=== PATIENT | female | born 1995 | race Caucasian/White ===

== ENCOUNTER 2017-02-01 09:53 | Outpatient (CLI) | payer OTHER ==
[~2017-02-01] VITALS: Ht 160 cm; Wt 53.1 kg
[~2017-02-01 09:53] MED LIST: HYDR-757 PO; NAPR500T PO; PANT40TA3 PO; SUCR1TAB36 PO
[2017-02-02] MEDS ORDERED: PANT40TA2 PO (09:52)
== END 2017-02-01 14:04 ==
LOC: PREOP 09:53
PROVIDERS: ATTEND Surgery
DX: Z01.818 Encounter for other preprocedural examination (principal); K92.1 Melena

== ENCOUNTER 2017-02-02 07:34 | Day surgery (SDC) | payer BC ==
[~2017-02-02] VITALS: Ht 160 cm; Wt 53.1 kg
--- OUTSIDE RECORDS SUMMARY | 2017-02-02 07:38 | XMS REPORT | Referral Summary ---
Author Author [facility] Organization [facility] Address Unknown Phone Unavailable Care Team Providers Care Retinal Surgeon Name Role Phone Nayana Hodges PCP Encounter VC Date(s): 12/05/14 - 12/05/14 [facility] [address] [place] [address] [place] Discharge Diagnosis: Well child check Discharge Disposition: 01-Home or Self Care Attending Physician: Nayana Hodges MD Vital Signs No data available for this section Problem List Condition Effective Dates Status Health Status Informant Allergic Active rhinitis(Confirmed) Well child Active check(Confirmed) Tourettes Active syndrome(Confirmed) Allergies, Adverse Reactions, Alerts No Known Allergies Medications CeleBREX 200 mg oral capsule 1 caps, Oral, Daily, # 10 caps, 0 Refill(s), samples given to patient (Rx) Start Date: 12/11/13 Stop Date: 12/21/13 Status: Ordered Results No data available for this section Immunizations Vaccine Date Refusal Reason meningococcal conjugate vaccine 12/03/13 Procedures Procedure Date Related Diagnosis Body Site S/P foot surgery 2011 S/P foot surgery, right 2010 Social History Social History Type Response Smoking Status Never smoker Assessment and Plan Extracted from: Title: [facility] Author: Nayana Hodges MD Date: 12/05/14 Assessment/Plan Well child check Anticipatory Guidance General: adequate amount of sleep, alcohol/drugs/tobacco, allow privacy, early childhood/adult supervision, dating, dental care, encourage decision making/ independence, hobbies/sports/activities encouragement, limit TV/video games/ computer, school performance and sex education/safe sex/STDs/ control. Diet : balanced diet, eat meals as a family, encourage healthy food, low fat or nonfat milk and maintain healthy weight. Safety : bike/skateboard safety, body piercing/tattooing risk, drowning, guns (unload/lock-up), helmet use, home alone, limit sun exposure: use of sunscreen, seat belts and sport safety. Ordered: Periodic Comp Preventive Med 18 to 39 years Est 62020
--- OUTSIDE RECORDS SUMMARY | 2017-02-02 07:38 | XMS REPORT ---
Author Josef Doan Organization [employer] Address Unknown Phone Unavailable Care Team Providers Care Offset Pressman Name Role Phone Josef Ellis CP Unavailable Allergies No Known Allergies Problems No Known Problems Medications Medication Code System Code Instructions Start Date End Date Status Dosage Medrol (Rogelio) [facility] [id number] 4 mg Orally as directed Jun 12, 2014 as directed Results No Known Results Summary Purpose [employer] Submission
--- OUTSIDE RECORDS SUMMARY | 2017-02-02 07:38 | XMS REPORT | Referral Summary ---
Author Author [facility] Organization [facility] Address Unknown Phone Unavailable Care Team Providers Care Bottle Hop Name Role Phone Nayana Hodges PCP Encounter VC Date(s): 12/05/14 - 12/05/14 [facility] [address] [place] [address] [facility] Discharge Disposition: 01-Home or Self Care Attending Physician: Nayana Hodgse MD Vital Signs Most recent to 1 oldest [Reference Range]: Temperature Oral 36.8 degC [35.8-37.3 degC] (12/05/14 10:06 AM) Peripheral Pulse 88 bpm Rate [60-100 bpm] (12/05/14 10:06 AM) Respiratory Rate 16 br/min [14-20 br/min] (12/05/14 10:06 AM) Blood Pressure 90/60 mmHg [90-140/60-90 mmHg] (12/05/14 10:06 AM) Problem List Condition Effective Dates Status Health [...] foot surgery 2011 S/P foot surgery, right 2011 Social History Social History Type Response Smoking Status Never smoker Assessment and Plan No data available for this section
[2017-02-02] MEDS ORDERED: LACTATED RINGERS 1,000 ML IV STA (07:45)
[2017-02-02] MEDS ORDERED: HURRICAINE EXT TUBE (BENZOCAINE) XX PRN (07:45)
[2017-02-02 08:01] VITALS: BP 108/79
[2017-02-02] MEDS ORDERED: LIDOCAINE PF 2% 5 ML (XYLOCAINE) VIAL ONE (08:16)
[2017-02-02] MEDS ORDERED: PROPOFOL INJECTION 50 ML IV ONE (08:16)
--- NOTE | 2017-02-02 08:37 | Progress Note-Pre Operative ---
Pre-Operative Progress Note H&P Reviewed The H&P was reviewed, patient examined and no changes noted. Date Seen by Provider: Feb 02, 2017 Time Seen by Provider: 08:36 Date H&P Reviewed: Feb 02, 2017 Time H&P Reviewed: 08:37 Pre-Operative Diagnosis: epigastric abdominal pain, bright red blood per rectum HAMMAD BATES DO Feb 02, 2017 08:37
[2017-02-02] MEDS ORDERED: HURRICAINE EXT TUBE (BENZOCAINE) ONE (09:18)
[2017-02-02 09:35] VITALS: BP 115/72
[2017-02-02] MEDS ORDERED: PANT40TA2 PO (09:52)
[2017-02-02 09:55] VITALS: BP 116/72
--- NOTE | 2017-02-02 09:55 | Discharge Inst-Simple/Standard ---
Discharge Inst-Standard Discharge Medications New, Converted or Re-Newed RX: Transmitted to Pharmacy Patient Instructions/Follow Up Plan of Care/Instructions/FU: 2 weeks Louisa Activity as Tolerated: Yes Discharge Diet: Regular Diet HAMMAD BATES DO Feb 02, 2017 09:54
--- NOTE | 2017-02-02 09:56 | Progress Note-Post Operative ---
Post-Operative Progess Note Surgeon (s)/Scroll Saw Operator (s) Surgeon HAMMAD BATES DO Scroll Saw Operator: na Pre-Operative Diagnosis epigastric abdominal pain, bright red blood per rectum Post-Operative Diagnosis small hiatal hernia Procedure & Operative Findings Date of Procedure 02/02/17 Procedure Performed/Findings egd c biopsy, colonoscopy Anesthesia Type per medical registrar Estimated Blood Loss Estimated blood loss (mL): none Specimens/Packing Specimens Removed antrum HAMMAD BATES DO Feb 02, 2017 09:56
[2017-02-02 10:03] VITALS: BP 116/72
--- NOTE | 2017-02-02 19:25 | OPERATIVE REPORT ---
DATE OF SERVICE: 02/02/2017 PREOPERATIVE DIAGNOSIS: Epigastric abdominal pain, bright blood per rectum. POSTOPERATIVE DIAGNOSIS: Small hiatal hernia, normal colon. PROCEDURE: Esophagogastroduodenoscopy with biopsy and colonoscopy. ANESTHESIA: Per KILN REMOVER. ESTIMATED BLOOD LOSS: None. SPECIMENS: Antrum. INDICATIONS: The patient is a 22-year-old female who has been having continuous epigastric abdominal pain. She has also had episodes of bright red blood per rectum. She understands risks and benefits of procedures and wished to proceed with procedure. Consent was signed and on the chart. DESCRIPTION OF PROCEDURE: The patient was taken to the endoscopy suite, placed in left lateral recumbent position. Timeout was performed. Scope was inserted in mouth, down into esophagus, stomach and into the duodenum. The duodenum had no polyps, mass or ulcerations. The scope was slowly retracted back into the stomach, which was further insufflated. There are no polyps, masses or ulcerations within the stomach. Biopsy of the antrum was obtained. The scope was retroflexed and there is a small hiatal hernia. There were no other polyps, masses or ulcerations. Scope was returned to its normal position, slowly withdrawn back into the distal esophagus which had normal appearance. There are no polyps, masses or ulcerations or erythematous changes. Scope was slowly retracted back until completely removed. Digital rectal exam was performed and there were no palpable polyps, masses or ulcerations. No visible abnormalities as well. Scope was inserted in the rectum and advanced all the way to the cecum with minimal difficulty. Prep was adequate. The terminal ileum was intubated, which the ileum had normal appearance. The scope was then retracted back into the colon and there were no polyps, masses or ulcerations within the cecum, ascending, transverse, descending and sigmoid colon. In the rectum the scope was also retroflexed noting no other pathology. Scope was returned to its normal position, slowly withdrawn until completely removed, noting no other pathology. The patient tolerated procedure well without any complications. She was taken to recovery room in stable condition of the patient. RECOMMENDATIONS: The patient will restart her Protonix 40 mg daily. She will follow up in the office in approximately 2 weeks. We will await biopsy results. If no improvement would also consider further workup of repeating the gallbladder workup and if that is negative, would consider getting a CT scan of the abdomen and pelvis or further by have her follow backup with gastroenterology. Job ID: [id number] DocumentID: [id number] Dictated Date: 02/02/2017 10:59:09 Business Solutions Architect Date: 02/02/2017 19:24:49 Dictated By: HAMMAD BATES DO
== END 2017-02-02 10:03 | disposition home or self-care (01) ==
LOC: SDC 07:34
PROVIDERS: ATTEND Surgery
DX: R10.13 Epigastric pain; K44.9 Diaphragmatic hernia without obstruction or gangrene; K62.5 Hemorrhage of anus and rectum
CPT/HCPCS: 84703

== ENCOUNTER → 2017-04-11 | Outpatient (CLI) | payer BC ==
[~2017-04-11] MED LIST changes: +CATHETER FLUSH 10 ML SYR IV PRN; +NAPR-1071 PO; -NAPR500T PO; +PANT40TA2 PO
--- NOTE | 2017-04-11 14:34 | Diagnostic Imaging Report ---
EXAMINATION: HIDA with EF measurements Indication: Abdominal pain TECHNIQUE: After the intravenous administration of 5.2 mCi of Tc 99m Choletec, imaging over the abdomen was obtained. This was followed by administration of Ensure orally to stimulate intrinsic CCK secretion, followed by continued imaging with ejection fraction measured. FINDINGS: There is homogeneous uptake in the liver with prompt bile duct and gallbladder filling seen. Bowel activity is seen at 65 minutes. Based on further imaging and gallbladder area of interest activity measurements after the administration of Ensure, the gallbladder ejection fraction is estimated at 59%. IMPRESSION: 1. Normal hepatobiliary uptake and Gallbladder filling. 2. Normal gallbladder ejection fraction. Dictated by: Dictated on workstation # [id number]
== END ==
LOC: CARD 09:38
PROVIDERS: ATTEND Surgery
DX: R10.13 Epigastric pain (principal)
CPT/HCPCS: 78227

== ENCOUNTER 2021-02-19 18:47 | Emergency (ER) | payer OTHER ==
[~2021-02-19] VITALS: Ht 162.5 cm; Wt 53.3 kg
[~2021-02-19 18:47] MED LIST changes: -CATHETER FLUSH 10 ML SYR IV PRN; +HYDR-4226 PO; -HYDR-757 PO; +NITR-65 PO; +OMEP40CA6 PO; +ONDA8TAB13 PO; -PANT40TA3 PO; +PANT40TA52 PO
--- NOTE | 2021-02-19 19:26 | ED GI ---
General Chief Complaint: OB < 20 WEEKS Stated Complaint: N/V- 7 WKS PREG Nursing Triage Note: Pt ambulatory into ER with complaint of Nausea and Vomiting x4 days. PT states that she is about 7 weeks . Pt states that earlier this year she had a miscarriage, but during that she was diagnosed with hyperemsis very early. PT states that she has vomited at least 7 times each of the last 4 days. Today she has vomited 13 times. Pt states that she is allergic to promethazine. Pt denies other complaints. Source of Information: Patient Exam Limitations: No Limitations History of Present Illness Date Seen by Provider: Feb 19, 2021 Time Seen by Provider: 19:25 Initial Comments To ER by private vehicle with reports of uncontrolled nausea and vomiting. She denies any abdominal pain or vaginal bleeding. She is 7 weeks gestation. She had some troubles with vomiting during previous . She is from [facility] here for a wedding. Timing/Duration: 3-4 Days Severity/Quality: Moderate Location: Generalized Abdomen Radiation: No Radiation Activities at Onset: None Associated Symptoms: Nausea/Vomiting Allergies and Home Medications Allergies Coded Allergies: No Known Drug Allergies (Verified , 02/01/17) Patient Home Medication List Home Medication List Reviewed: Yes Nitrofurantoin Monohyd/M-Cryst (Macrobid 100 mg Capsule) 100 Mg Capsule, 1 TAB PO BID Prescribed by: MARIBEL COLON on 08/21/171836 Omeprazole (Omeprazole) 40 Mg Capsule.dr, 40 MG PO DAILY Prescribed by: MARIBEL COLON on 08/21/171836 Ondansetron (Ondansetron Odt) 8 Mg Tab.rapdis, 8 MG PO Q6H PRN for NAUSEA/VOMITING-1ST LINE Prescribed by: MARIBEL COLON on 08/21/171836 Pantoprazole Sodium (Protonix) 40 Mg Tablet., 40 MG PO DAILY Prescribed by: HAMMAD BATES on 02/02/17 0952 Review of Systems Review of Systems Constitutional: see HPI EENTM: No Symptoms Reported Respiratory: No Symptoms Reported Cardiovascular: No Symptoms Reported Gastrointestinal: See HPI, Abdominal Pain Genitourinary: No Symptoms Reported Musculoskeletal: no symptoms reported Skin: no symptoms reported Psychiatric/Neurological: No Symptoms Reported Endocrine: No Symptoms Reported Hematologic/Lymphatic: No Symptoms Reported Past Xqyjhlx-Ofcmfc-Fgoybf Hx Patient Social History Tobacco Use?: No Use of E-Cig and/or Vaping dev: No Substance use?: No Alcohol Use?: No Pt feels they are or have been: No Immunizations Up To Date Tetanus Booster (TDap): Less than 5yrs Influenza Vaccine Up-to-Date: No; Not Current First/Initial COVID19 Vaccinat: 08/20 COVID19 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: [employer] Seasonal Allergies Seasonal Allergies: No Past Medical History Surgeries: Yes (foot surgery bilat, ear tubes) Adenoidectomy, Orthopedic Respiratory: Yes (ASTHMA-MILD) Asthma Cardiac: No Neurological: Yes (history of Tourette's with minor tics) Headaches /Migraines Last Menstrual Period: Dec 24, 2020 Reproductive Disorders: No Female Reproductive Disorders: Denies Sexually Transmitted Disease: No HIV/AIDS: No Gastrointestinal: Yes (BLOOD IN STOOLS, NAUSEA) Gall Bladder Disease Musculoskeletal: No Endocrine: No Loss of Vision: Bilateral Hearing Impairment: Denies Cancer: No Psychosocial: No Integumentary: No Blood Disorders: No Adverse Reaction/Blood Tranf: No Family Medical History No Pertinent Family Hx Physical Exam Vital Signs Vital Signs - First Documented 02/19/21 18:56 Temp 36.3 Pulse 84 Resp 16 B/P (MAP) 119/84 (96) Pulse Ox 99 O2 Delivery Room Air Capillary Refill : Less Than 3 Seconds Height/Weight/BMI Height: 5'5.00" Weight: 117lbs. 0.0oz. 53.969443sl; 20.00 BMI Method:Stated General Appearance: WD/WN, no apparent distress Neck: non-tender, full range of motion Respiratory: no respiratory distress, no accessory muscle use Cardiovascular: regular rate, rhythm, no murmur Gastrointestinal: normal bowel sounds, non tender, soft Extremities: normal range of motion, non-tender Neurologic/Psychiatric: alert, normal mood/affect, oriented x 3 Skin: normal color, warm/dry Progress/Results/Core Measures Results/Orders Lab Results Laboratory Tests Test 02/19/21 19:07 02/19/21 19:36 Range/Units Urine Color YELLOW Urine Clarity CLEAR Urine pH 7.0 5-9 Urine Specific Gerlaw 1.020 1.016-1.022 Urine Protein NEGATIVE NEGATIVE Urine Glucose (UA) NEGATIVE NEGATIVE Urine Ketones NEGATIVE NEGATIVE Urine Nitrite NEGATIVE NEGATIVE Urine Bilirubin NEGATIVE NEGATIVE Urine Urobilinogen 0.2 < = 1.0 MG/DL Urine Leukocyte Esterase 2+ H NEGATIVE Urine RBC (Auto) TRACE-I H NEGATIVE Urine RBC 0-2 /HPF Urine WBC 2-5 /HPF Urine Squamous Epithelial Cells 0-2 /HPF Urine Crystals NONE /LPF Urine Bacteria FEW H /HPF Urine Casts NONE /LPF Urine Mucus SMALL H /LPF Urine Culture Indicated YES White Blood Count 9.7 4.3-11.0 10^3/uL Red Blood Count 4.59 3.80-5.11 10^6/uL Hemoglobin 13.9 11.5-16.0 g/dL Hematocrit 39 35-52 % Mean Corpuscular Volume 85 80-99 fL Mean Corpuscular Hemoglobin 30 25-34 pg Mean Corpuscular Hemoglobin Concent 36 32-36 g/dL Red Cell Distribution Width 11.9 10.0-14.5 % Platelet Count 218 130-400 10^3/uL Mean Platelet Volume 12.2 9.0-12.2 fL Immature Granulocyte % (Auto) 0 % Neutrophils (%) (Auto) 72 42-75 % Lymphocytes (%) (Auto) 20 12-44 % Monocytes (%) (Auto) 6 0-12 % Eosinophils (%) (Auto) 1 0-10 % Basophils (%) (Auto) 0 0-10 % Neutrophils # (Auto) 7.0 1.8-7.8 10^3/uL Lymphocytes # (Auto) 2.0 1.0-4.0 10^3/uL Monocytes # (Auto) 0.6 0.0-1.0 10^3/uL Eosinophils # (Auto) 0.1 0.0-0.3 10^3/uL Basophils # (Auto) 0.0 0.0-0.1 10^3/uL Immature Granulocyte # (Auto) 0.0 0.0-0.1 10^3/uL Sodium Level 137 135-145 MMOL/L Potassium Level 3.4 L 3.6-5.0 MMOL/L Chloride Level 104 98-107 MMOL/L Carbon Dioxide Level 23 21-32 MMOL/L Anion Gap 10 5-14 MMOL/L Blood Urea Nitrogen 6 L 7-18 MG/DL Creatinine 0.74 0.60-1.30 MG/DL Estimat Glomerular Filtration Rate 96 BUN/Creatinine Ratio 8 Glucose Level 96 70-105 MG/DL Calcium Level 9.7 8.5-10.1 MG/DL Corrected Calcium 9.5 8.5-10.1 MG/DL Total Bilirubin 0.5 0.1-1.0 MG/DL Aspartate Amino Transf (AST/SGOT) 18 5-34 U/L Alanine Aminotransferase (ALT/SGPT) 13 0-55 U/L Alkaline Phosphatase 41 40-136 U/L Total Protein 7.5 6.4-8.2 GM/DL Albumin 4.3 3.2-4.5 GM/DL My Orders Orders - GASPER HADLEY APRN Cbc With Automated Diff (02/19/21 19:24) Comprehensive Metabolic Panel (02/19/21 19:24) Ed Iv/Invasive Line Start (02/19/21 19:24) Lactated Ringers (Lr 1000 Ml Iv Solution (02/19/21 19:30) Ondansetron Injection (Zofran Injectio (02/19/21 19:30) Diphenhydramine Injection (Benadryl Inje (02/19/21 19:30) Hcg,Quantitative (02/19/21 19:26) Medications Given in ED Current Medications Medications Dose Ordered Sig/Maci Route Start Time Stop Time Status Last Admin Dose Admin Diphenhydramine HCl 25 mg ONCE ONCE IVP 02/19/21 19:30 02/19/21 19:31 DC 02/19/21 19:36 25 MG Ondansetron HCl 8 mg ONCE ONCE IVP 02/19/21 19:30 02/19/21 19:31 DC 02/19/21 19:36 8 MG Vital Signs/I&O 02/19/21 18:56 Temp 36.3 Pulse 84 Resp 16 B/P (MAP) 119/84 (96) Pulse Ox 99 O2 Delivery Room Air Blood Pressure Mean: 96 Departure Impression Primary Impression: Nausea and vomiting during Additional Impression: Asymptomatic bacteriuria during Disposition: 01 HOME, SELF-CARE Condition: Stable Departure-Patient Inst. Decision time for Depature: 21:09 Referrals: NO,LOCAL PHYSICIAN (PCP/Family) Primary Care Physician Patient Instructions: Nausea and Vomiting of Scripts Cephalexin (Cephalexin) 500 Mg Tablet 500 MG PO TID, #9 TAB Prov: GASPER HADLEY APRN 02/19/21 GASPER HADLEY APRN Feb 19, 2021 19:26
[2021-02-19] MEDS ORDERED: ONDANSETRON 4 MG/2 ML (SDV) Z0FRAN IVP ONE (19:30)
[2021-02-19] MEDS ORDERED: diphenhydrAMINE 50 MG/ML INJ (BENADRYL) IVP ONE (19:30)
[2021-02-19] MEDS ORDERED: LACTATED RINGERS 1,000 ML IV SCH (19:30)
[2021-02-19 19:41] LABS: BILIRUBIN,URINE NEGATIVE (NEGATIVE); CLARITY,URINE CLEAR; COLOR,URINE YELLOW; GLUCOSE, URINE (UA) NEGATIVE (NEGATIVE); KETONES,URINE NEGATIVE (NEGATIVE); LEUKOCYTE ESTERASE ,URINE 2+ (NEGATIVE); NITRITE,URINE NEGATIVE (NEGATIVE); PROTEIN,URINE NEGATIVE (NEGATIVE)
[2021-02-19 19:45] LABS: BASOPHILS % (AUTO) 0 % (0-10); EOSINOPHILS # (AUTO) 0.1 10^3/uL (0.0-0.3); EOSINOPHILS % (AUTO) 1 % (0-10); HEMATOCRIT 39 % (35-52); HEMOGLOBIN 13.9 g/dL (11.5-16.0); LYMPHOCYTES % (AUTO) 20 % (12-44); MEAN CORPUSCULAR HEMOGLOBIN 30 pg (25-34); MEAN CORPUSCULAR HGB CONC 36 g/dL (32-36); MEAN CORPUSCULAR VOLUME 85 fL (80-99); MEAN PLATELET VOLUME 12.2 fL (9.0-12.2); MONOCYTES # (AUTO) 0.6 10^3/uL (0.0-1.0); MONOCYTES % (AUTO) 6 % (0-12); NEUTROPHILS % (AUTO) 72 % (42-75); PLATELET COUNT 218 10^3/uL (130-400); WHITE BLOOD COUNT 9.7 10^3/uL (4.3-11.0)
[2021-02-19 19:53] LABS: BACTERIA,URINE FEW /HPF; RBC,URINE 0-2 /HPF; SQUAMOUS EPITHELIAL CELL,UR 0-2 /HPF
[2021-02-19 20:58] LABS: ALBUMIN 4.3 GM/DL (3.2-4.5); BILIRUBIN,TOTAL 0.5 MG/DL (0.1-1.0); CALCIUM 9.7 MG/DL (8.5-10.1); CREATININE SERUM 0.74 MG/DL (0.60-1.30); POTASSIUM 3.4 MMOL/L (3.6-5.0); TOTAL PROTEIN 7.5 GM/DL (6.4-8.2)
[2021-02-19] MEDS ORDERED: RX-ONDANSETRON 4 MG ODT (ZOFRAN) PPK #4 PO STA (21:09)
[2021-02-19] MEDS ORDERED: CEPH500T PO (21:10)
[2021-02-19 21:18] VITALS: BP 116/73
== END 2021-02-19 21:17 | disposition home or self-care (01) ==
LOC: EDUNIT# 18:47 → ER 18:51
DX: O21.0 Mild hyperemesis gravidarum (principal); O23.91 Unspecified genitourinary tract infection in pregnancy, first trimester; R82.71 Bacteriuria; J45.909 Unspecified asthma, uncomplicated; Z3A.01 Less than 8 weeks gestation of pregnancy
CPT/HCPCS: 36415; 80053; 81000; 84702; 84703; 85025; 87088

== ENCOUNTER 2021-02-20 13:47 | Emergency (ER) | payer OTHER ==
[~2021-02-20] VITALS: Ht 162 cm; Wt 53.6 kg
[~2021-02-20 13:47] MED LIST changes: +CEPH500T PO
--- NOTE | 2021-02-20 14:25 | ED GU-Female ---
General Chief Complaint: - Reproductive Stated Complaint: CRAMPING AND DISCHARGE, 8 WEEKS Nursing Triage Note: AMB TO ROOM REPORTS IS APX 8 WEEKS PREG. WAS SEEN IN ED LAST NIGHT FOR VOMITING. WAS GIVEN IV FLUIDS FELT GOOD AFTER AND THIS AM WORKE UP WITH ABD CRAMPING AND NOTICED DARK DISCHARGE Source: patient Exam Limitations: no limitations History of Present Illness Date Seen by Provider: Feb 20, 2021 Time Seen by Provider: 14:00 Initial Comments Patient is a 26-year-old female who presents to the emergency department today with a chief complaint of concern for lower abdominal cramping and a little brownish vaginal discharge, states that she is exactly 8 weeks . She is a , prior miscarriage this year in September. She was approximately 6 weeks along with her last miscarriage. Patient was in the emergency department last night for vomiting was given IV fluids and nausea medications states she woke up completely improve this morning and felt "like a new person". She denies any recent fevers, chills, shortness of breath or cough. No dysuria, urgency or frequency. No bright red blood per vagina. All other review of systems reviewed and negative except as stated. Timing/Duration: this morning Severity/Quality: mild Location: suprapubic Activities at Onset: none Associated Symptoms: denies symptoms Allergies and Home Medications Allergies Coded Allergies: No Known Drug Allergies (Verified , 02/01/17) Patient Home Medication List Home Medication List Reviewed: Yes Cephalexin (Cephalexin) 500 Mg Tablet, 500 MG PO TID Prescribed by: GASPER HADLEY on 02/19/212109 Nitrofurantoin Monohyd/M-Cryst (Macrobid 100 mg Capsule) 100 Mg Capsule, 1 TAB PO BID Prescribed by: MARIBEL COLON on 08/21/171836 Omeprazole (Omeprazole) 40 Mg Capsule., 40 MG PO DAILY Prescribed by: MARIBEL COLON on 08/21/171836 Ondansetron (Ondansetron Odt) 8 Mg Tab.rapdis, 8 MG PO Q6H PRN for NA USEA/VOMITING-1ST LINE Prescribed by: MARIBEL COLON on 08/21/171836 Pantoprazole Sodium (Protonix) 40 Mg Tablet., 40 MG PO DAILY Prescribed by: HAMMAD BATES on 02/02/17 0917 Review of Systems Review of Systems Constitutional: see HPI EENTM: no symptoms reported Respiratory: no symptoms reported Cardiovascular: no symptoms reported Gastrointestinal: other (Pelvic cramping) Genitourinary: other (Pelvic cramping; brownish vaginal discharge) : Yes Expected Date of Delivery: Oct 02, 2021 Musculoskeletal: no symptoms reported Skin: no symptoms reported All Other Systemes Reviewed Negative Unless Noted: Yes Past Hkmezun-Wtlzxo-Nkflvf Hx Patient Social History Tobacco Use?: No Substance use?: No Immunizations Up To Date Tetanus Booster (TDap): Less than 5yrs First/Initial COVID19 Vaccinat: AUGUST 08 COVID19 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[place] Seasonal Allergies Seasonal Allergies: No Past Medical History Surgeries: Yes (foot surgery bilat, ear tubes) Adenoidectomy, Orthopedic Respiratory: Yes (ASTHMA-MILD) Asthma Cardiac: No Neurological: Yes (history of Tourette's with minor tics) Headaches /Migraines Expected Date of Delivery: Oct 02, 2021 Last Menstrual Period: Dec 24, 2020 Reproductive Disorders: No Female Reproductive Disorders: Denies Sexually Transmitted Disease: No HIV/AIDS: No Gastrointestinal: Yes (BLOOD IN STOOLS, NAUSEA) Gall Bladder Disease Musculoskeletal: No Endocrine: No Loss of Vision: Bilateral Hearing Impairment: Denies Cancer: No Psychosocial: No Integumentary: No Blood Disorders: No Adverse Reaction/Blood Tranf: No Family Medical History No Pertinent Family Hx Physical Exam Vital Signs Vital Signs - First Documented 02/20/21 14:02 Pulse 102 Resp 18 B/P (MAP) 141/87 (105) Pulse Ox 100 O2 Delivery Room Air Capillary Refill : Less Than 3 Seconds Height, Weight, BMI Height: 5'5.00" Weight: 117lbs. 0.0oz. 53.211923nb; 20.00 BMI Method:Stated General Appearance: WD/WN, no apparent distress HEENT: PERRL/EOMI, other (Appears adequately hydrate) Cardiovascular: regular rate, rhythm Respiratory: no respiratory distress, no accessory muscle use Gastrointestinal: normal bowel sounds, non tender, soft Extremities: normal range of motion, normal inspection Neurologic/Psychiatric: alert, normal mood/affect, oriented x 3 Skin: normal color, warm/dry Progress/Results/Core Measures Suspected Sepsis SIRS Temperature: Pulse: 102 Respiratory Rate: 18 Blood Pressure 141 /87 Mean: 105 Results/Orders Vital Signs/I&O 02/20/21 14:02 Pulse 102 Resp 18 B/P (MAP) 141/87 (105) Pulse Ox 100 O2 Delivery Room Air Capillary Refill : Less Than 3 Seconds Blood Pressure Mean: 105 Progress Note : Time: 14:25 Progress Note ED bedside ultrasound used to identify a gestational sac that appears around, with apparent pole and evidence of a flicker of cardiac activity. Attempted to Doppler heart sounds at the bedside. Departure Impression Primary Impression: Pelvic cramping in antepartum period Disposition: 01 HOME, SELF-CARE Condition: Stable Departure-Patient Inst. Decision time for Depature: 14:26 Referrals: NO,LOCAL PHYSICIAN (PCP/Family) Primary Care Physician Patient Instructions: - The Second Month Add. Discharge Instructions: Drink plenty of fluids to stay well-hydrated. You can take [id number] B6 vitamins and Unisom for nausea. Tylenol extra strength, 2 tablets every 6 hours as needed for cramping/headache. Pelvic rest until you follow-up with your MANAGER [employer]LO[employer] provider. Return to the emergency room for any new, concerning or emergent complaints especially worsening cramping with bright red blood from your vagina. RAJAN BAEZ MD Feb 20, 2021 14:25
[2021-02-20 14:43] VITALS: BP 141/87
== END 2021-02-20 14:41 | disposition home or self-care (01) ==
LOC: EDUNIT# 13:47 → ER 13:50
DX: O26.891 Other specified pregnancy related conditions, first trimester (principal); R10.2 Pelvic and perineal pain; O99.511 Diseases of the respiratory system complicating pregnancy, first trimester; J45.909 Unspecified asthma, uncomplicated; Z3A.08 8 weeks gestation of pregnancy
CPT/HCPCS: 99281